=== PATIENT | female | born 1940 | race African-American/Black ===

== ENCOUNTER 2022-02-08 17:42 | Emergency (ER) | payer OTHER, MEDICAID ==
[~2022-02-08] VITALS: Ht 157.5 cm; Wt 65.4 kg
[2022-02-08 17:59] VITALS: BP 171/97
--- NOTE | 2022-02-08 18:05 | NUR ---
ALMAZ. HANDED ON URINE CUP.
[2022-02-08] MEDS ORDERED: OMEP-278 PO (20:05)
[2022-02-08] MEDS ORDERED: POLY10SO OP (20:05)
--- NOTE | 2022-02-08 20:18 | NUR ---
Patient discharged with v/s stable. Written and verbal after care instructions given and explained. Patient alert, oriented and verbalized understanding of instructions. Wheel Chair Assisted with by staff. All questions addressed prior to discharge. ID band removed. Patient advised to follow up with PMD. Rx of OMPRAZOLE AND PLOYTRIM EYE DROPS given. Patient educated on indication of medication including possible reaction and side effects. Opportunity to ask questions provided and answered.
== END 2022-02-08 20:18 | disposition home or self-care (01) ==
LOC: MED 17:42
DX: H10.9 Unspecified conjunctivitis (principal); R10.13 Epigastric pain; I10 Essential (primary) hypertension; Z79.899 Other long term (current) drug therapy; Z79.2 Long term (current) use of antibiotics
CPT/HCPCS: 81002; 99283

== ENCOUNTER 2022-02-14 06:28 | Emergency (ER) | payer OTHER, MEDICAID ==
[~2022-02-14] VITALS: Ht 157.5 cm; Wt 65.8 kg
[~2022-02-14 06:28] MED LIST: OMEP-278 PO; POLY10SO OP
[2022-02-14 06:32] VITALS: BP 176/85
--- NOTE | 2022-02-14 06:35 | NUR ---
TO LOBBY A/W BED AMBULATORY
[2022-02-14 06:42] VITALS: BP 160/80
[2022-02-14] MEDS ORDERED: TETRACAINE HCL/PF 0.5% OPTH 4 ML BTL OP ONE (06:55)
[2022-02-14] MEDS ORDERED: FLUORESCEIN OPTH STRIP 1 MG OP ONE (06:55)
--- NOTE | 2022-02-14 07:18 | NUR ---
81/M WALKED IN C/O BILATERAL EYE DISCHARGE AND ITCHINESS. RIGHT EYE REDNESS NOTED. PT STATES ONSET OCTOBER OF THIS YEAR AND S/SX COMES AND GOES. VITALS STABLE. DENIES ANY VISUAL CHANGES OR BLURRINESS. VITALS STABLE, AMBULATORY.
--- NOTE | 2022-02-14 07:20 | NUR ---
PER ERMD, NO NEED FOR TETRACAINE AND FLUORO STRIP
[2022-02-14] MEDS ORDERED: CEPH-588 PO (07:26)
[2022-02-14] MEDS ORDERED: CETI10SG1 PO (07:26)
[2022-02-14] MEDS ORDERED: OFLOS BOTH EYES (07:26)
[2022-02-14] MEDS ORDERED: OLOP5DRO19 BOTH EYES (07:27)
== END 2022-02-14 07:30 | disposition home or self-care (01) ==
LOC: MED 06:28
DX: H10.12 Acute atopic conjunctivitis, left eye (principal)
CPT/HCPCS: 99283